=== PATIENT | male | born 1975 | race Caucasian/White ===

== ENCOUNTER 2017-06-11 15:07 | Emergency (ER) | payer BC ==
--- NOTE | 2017-06-11 17:13 | EDM.PDOC ---
ED HPI GENERAL MEDICAL PROBLEM - General Chief Complaint: ENT Problem Stated Complaint: DIZZINESS,SORE THROAT Time Seen by Provider: 06/11/17 17:10 Source of Information: Reports: Patient History Limitations: Reports: No Limitations - History of Present Illness INITIAL COMMENTS - FREE TEXT/NARRATIVE: 42-year-old male presents for evaluation treatment of dizziness and a sore throat. Patient reports he started feeling ill last night. Current symptoms include body aches, fevers, chills, nausea, dizziness, sore throat, decreased appetite and a slight cough. He states he is coughing up some green secretions. He also reports some sinus pressure above his eyes and headaches. Patient denies any diarrhea. He has been using honey in hot water with little symptom relief. Patient did not get a flu shot this year. Patient denies any recent travel. 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 He states he is not several contacts. Treatments HEALTH PRACTICE MANAGER: Reports: Other (see below) Other Treatments HEALTH PRACTICE MANAGER: hot water/honey- and packet of emergency that add to water Throat Pain Score (Numeric/FACES): 4 - Related Data Allergies Allergy/AdvReac Type Severity Reaction Status Date / Time simvastatin Allergy Itching Verified 06/11/17 15:40 Home Meds: Home Meds Oseltamivir [Tamiflu] 75 mg PO BID #10 cap 06/11/17 [Rx] Past Medical History - Past Surgical History GI Surgical History: Reports: Hernia, Abdominal Social & Family History - Tobacco Use Smoking Status *Q: Current Every Day Smoker Years of Tobacco use: 30 Packs/Tins Daily: 0.7 - Caffeine Use Caffeine Use: Reports: None - Recreational Drug Use Recreational Drug Use: No Other Recreational Drug Type: 6 weeks ago when in [place] ED ROS ENT - Review of Systems Review Of Systems: See Below Constitutional: Reports: Fever, Chills, Malaise, Fatigue, Decreased Appetite, Other (bodyaches) HEENT: Reports: Throat Pain. Denies: Ear Pain Respiratory: Reports: Cough ("little"), Sputum GI/Abdominal: Reports: Nausea. Denies: Diarrhea, Vomiting Neurological: Reports: Dizziness, Headache ED EXAM, ENT - Physical Exam Exam: See Below Exam Limited By: No Limitations General Appearance: Alert, WD/WN, Obese, Other (ill appearing) Eye Exam: Bilateral Eye: Normal Inspection Ears: Normal External Exam, Normal Canal, Hearing Grossly Normal, Normal TMs Nose: Normal Inspection Mouth/Throat: Normal Inspection, Normal Gums, Normal Oropharynx, Normal Teeth Respiratory/Chest: No Respiratory Distress, Lungs Clear, Normal Breath Sounds Cardiovascular: Normal Peripheral Pulses, Regular Rate, Rhythm, No Murmur Neurological: Alert, Oriented, Normal Cognition Psychiatric: Normal Affect, Normal Mood Skin: Normal Color, Diaphoretic, Increased Warmth Course - Vital Signs Last Recorded V/S: Last Vital Signs Temp 38.2 C H 06/11/17 15:33 Pulse 98 06/11/17 15:33 Resp 20 06/11/17 15:33 BP 142/98 H 06/11/17 15:33 Pulse Ox 94 L 06/11/17 15:33 - Re-Assessments/Exams Free Text/Narrative Re-Assessment/Exam: 06/11/17 17:08 rapid influenza returns positive for type a Rapid strep is negative. Reviewed the test results with the patient. Discussed starting Tamiflu. Discussed side effects. He is within a window to start treatment. He elects to start treatment. Will discharge him home at this time. Discharge instructions as documented. Departure - Departure Time of Disposition: 17:10 Disposition: Home, Self-Care 01 Condition: Fair Clinical Impression: Influenza A - Discharge Information Prescriptions: Oseltamivir [Tamiflu] 75 mg PO BID #10 cap Instructions: Influenza, Adult, [id number] Referrals: PCP,None [Primary Care Provider] - Forms: ED Department Discharge, ED Return to Work/School Form Additional Instructions: Tamiflu 1 tab twice a day for 5 days. Expect to be ill for several weeks. The first week will be the worst. [id number] Tylenol or Motrin as needed for headache and symptom relief. Drink plenty of fluids. Good hand hygiene. Follow-up with family medicine if your symptoms are now much better in 2 weeks. Please call [phone] to schedule the provider at the [facility]. Please return to ER if your symptoms change or worsen.
== END 2017-06-11 17:28 | disposition home or self-care (01) ==
LOC: JD.ED 15:07
DX: J10.1 Influenza due to other identified influenza virus with other respiratory manifestations (principal); F17.210 Nicotine dependence, cigarettes, uncomplicated; Z79.899 Other long term (current) drug therapy
CPT/HCPCS: 87081; 87430; 87804; 99283